=== PATIENT | male | born 1970 | race Caucasian/White ===

== ENCOUNTER 2020-08-24 15:26 | Emergency (ER) | payer OTHER ==
[~2020-08-24] VITALS: Ht 185.4 cm; Wt 145.8 kg
--- NOTE | 2020-08-24 15:50 | NUR ---
Triage edited to add temp.
--- NOTE | 2020-08-24 15:58 | NUR ---
Pt states he was sent from urgent care because he has small bone fragments "floating around in his elbow." [facility] inctact. Pt presents in sling. NPO since 144. 1000mg of Tylenol for pain. Connected to BP and O2 monitors. Call light and cell phone in reach.
--- NOTE | 2020-08-24 16:25 | NUR ---
Pt takes unknown blood thinner for 3 stents in his heart. "My veins were like garden hoses, I didn't have a heart attack."
[2020-08-24] MEDS ORDERED: HYDROmorphone 1 MG/ML, 1ML INJ IVPush PRN (16:30)
[2020-08-24] MEDS ORDERED: ONDANSETRON 2MG/ML, 2ML IVPush ONE (16:30)
[2020-08-24] MEDS ORDERED: SODIUM CHLORIDE FLUSH 10ML SYR IVF ONE (16:30)
[2020-08-24] MEDS ORDERED: HYDROmorphone 1 MG/ML, 1ML INJ ONE (17:37)
[2020-08-24] MEDS ORDERED: ONDANSETRON 2MG/ML, 2ML ONE (17:38)
[2020-08-24 18:32] VITALS: BP 147/84
--- NOTE | 2020-08-24 18:39 | NUR ---
Pt opiate niave. Given 1mg in 2 0.5mg doses. Pt states pain relief.
--- NOTE | 2020-08-24 18:54 | NUR ---
RECEIVED BS REPORT FROM BECCA GARCIA TO ASSUME CARE OF PT. AT THIS TIME. PT. REPORTS PAIN IS "MUCH BETTER" AFTER MEDS. TECH AT BS FOR SPLINT PLACEMENT. PT. TO D/C WHEN SPLINT COMPLETED.
--- NOTE | 2020-08-24 19:12 | NUR ---
SPLINT COMPLETED. AWAITING PA CHECK OFF.
--- NOTE | 2020-08-24 19:26 | NUR ---
PA AT BS TO CHECK SPLINT.
== END 2020-08-24 19:57 | disposition home or self-care (01) ==
LOC: ED 18:31
DX: S42.402A Unspecified fracture of lower end of left humerus, initial encounter for closed fracture (principal); I10 Essential (primary) hypertension; E11.9 Type 2 diabetes mellitus without complications; I25.10 Atherosclerotic heart disease of native coronary artery without angina pectoris; F17.200 Nicotine dependence, unspecified, uncomplicated; W00.0XXA Fall on same level due to ice and snow, initial encounter; Y93.89 Activity, other specified; Y92.89 Other specified places as the place of occurrence of the external cause; Y99.8 Other external cause status
CPT/HCPCS: 29105; 73080; 73200; 96374; 96375; 99284; J1170; J2405

== ENCOUNTER 2020-08-27 11:57 | Day surgery (SDC) | payer OTHER ==
[~2020-08-27] VITALS: Ht 185.4 cm; Wt 145.0 kg
[2020-08-27 12:41] VITALS: BP 145/90
[2020-08-27] MEDS ORDERED: ATOR20TA37 PO (12:41)
[2020-08-27] MEDS ORDERED: GABA100C PO (12:41)
[2020-08-27] MEDS ORDERED: METO25TA35 PO (12:41)
[2020-08-27] MEDS ORDERED: FENO135C4 PO (12:41)
[2020-08-27] MEDS ORDERED: LISI-170 PO (12:41)
[2020-08-27] MEDS ORDERED: METF500T17 PO (12:41)
[2020-08-27] MEDS ORDERED: CLOP75TA PO (12:41)
[2020-08-27] MEDS ORDERED: ASPI-515 PO (12:41)
[2020-08-27] MEDS ORDERED: CHLORHEXIDINE 15 ML UDC MM STA (12:59)
[2020-08-27] MEDS ORDERED: LACTATED RINGERS 1,000 ML IV SCH (13:00)
[2020-08-27] MEDS ORDERED: CHLORHEXIDINE 15 ML UDC ONE (13:02)
[2020-08-27 13:38] LABS: ALBUMIN 3.5 g/dL (3.4-5.0); ANION GAP 6 mmol/L (5-15); CALCIUM 8.8 mg/dL (8.5-10.1); CHLORIDE 107 mmol/L (98-107)
[2020-08-27 13:41] LABS: ALANINE AMINOTRANSFERASE 34 U/L (12-78); ALKALINE PHOSPHATASE 94 U/L (45-117); BILIRUBIN,TOTAL 0.5 mg/dL (0.2-1.0); CREATININE 0.93 mg/dL (0.7-1.3); TOTAL PROTEIN 7.1 g/dL (6.4-8.2)
[2020-08-27] MEDS ORDERED: MIDAZOLAM 1 MG/ML, 2ML ONE (13:44)
[2020-08-27] MEDS ORDERED: FENTANYL PF 100 MCG/2ML ONE ×2 (13:44→17:13)
[2020-08-27] MEDS ORDERED: BUPIVACAINE/PF 0.25% ONE (13:46)
[2020-08-27] MEDS ORDERED: EPINEPHRINE 1 MG/ML, 1ML ONE (13:46)
[2020-08-27] MEDS ORDERED: PHENYLEPHRINE 10 MG/ML ONE (14:10)
[2020-08-27] MEDS ORDERED: MEPERIDINE/PF 25MG/0.5ML IVPush PRN (15:00)
[2020-08-27] MEDS ORDERED: ACETAMINOPHEN 325 MG TABLET PO PRN (15:00)
[2020-08-27] MEDS ORDERED: ALBUTEROL SULFATE 2.5 MG/3 ML NPPB PRN (15:00)
[2020-08-27] MEDS ORDERED: FENTANYL PF 100 MCG/2ML IV PRN (15:00)
[2020-08-27] MEDS ORDERED: HYDROmorphone 1 MG/ML, 1ML INJ IVPush PRN (15:00)
[2020-08-27] MEDS ORDERED: OXYcodone 5 MG/5 ML ORAL.SOL UDC PO PRN (15:00)
[2020-08-27] MEDS ORDERED: LABETALOL 5MG/ML, 20ML IV PRN (15:00)
[2020-08-27] MEDS ORDERED: PROMETHAZINE 25 MG/ML, 1ML IVPush PRN (15:00)
[2020-08-27] MEDS ORDERED: hydrALAzine 20 MG/ML, 1ML IV PRN (15:00)
[2020-08-27] MEDS ORDERED: VANCOMYCIN 1,000 MG ONE (16:11)
[2020-08-27] MEDS ORDERED: LIDOCAINE-MPF 2% ,5ML ONE (16:30)
[2020-08-27] MEDS ORDERED: PROPOFOL 10 MG/ML, 20ML ONE (16:30)
[2020-08-27] MEDS ORDERED: GLYCOPYRROLATE 0.2MG/1ML, 5ML ONE (16:30)
[2020-08-27] MEDS ORDERED: ONDANSETRON 2MG/ML, 2ML ONE (16:30)
[2020-08-27] MEDS ORDERED: CEFAZOLIN 1,000 MG ONE (16:30)
[2020-08-27] MEDS ORDERED: NEOSTIGMINE 1 MG/ML, 10ML ONE (16:30)
[2020-08-27] MEDS ORDERED: ROCURONIUM 10MG/ML,5ML ONE (16:30)
[2020-08-27] MEDS ORDERED: ACETAMINOPHEN 650 MG/20.3 ML UDC ONE (17:13)
[2020-08-27] MEDS ORDERED: OXYcodone 5 MG/5 ML ORAL.SOL UDC ONE (17:14)
== END 2020-08-27 19:20 | disposition home or self-care (01) ==
LOC: OUT 11:57
PROVIDERS: ATTEND Orthopaedic Surgery
DX: S42.492A Other displaced fracture of lower end of left humerus, initial encounter for closed fracture (principal); I10 Essential (primary) hypertension; I25.10 Atherosclerotic heart disease of native coronary artery without angina pectoris; E78.5 Hyperlipidemia, unspecified; E66.01 Morbid (severe) obesity due to excess calories; F12.90 Cannabis use, unspecified, uncomplicated; Z68.41 Body mass index [BMI] 40.0-44.9, adult; W19.XXXA Unspecified fall, initial encounter; Y93.89 Activity, other specified; Y92.89 Other specified places as the place of occurrence of the external cause; Y99.8 Other external cause status; Z20.828 Contact with and (suspected) exposure to other viral communicable diseases; Z79.82 Long term (current) use of aspirin; Z72.89 Other problems related to lifestyle; Z83.3 Family history of diabetes mellitus; Z98.890 Other specified postprocedural states
CPT/HCPCS: 24579; 36415; 64415; 73060; 80053; 87635; 93005; C1713; J0690; J2250; J2370; J2405; J2704; J2710; J3010; J3370; J7120; 76000; J0171